=== PATIENT | female | born 1975 | race Caucasian/White ===

== ENCOUNTER 2023-07-11 20:48 | Emergency (ER) | payer OTHER ==
--- NOTE | 2023-07-11 20:58 | ED ---
Lower Extremity Injury HPI - General Source: patient, RN notes reviewed <Aurelia Wray - Last Filed: 07/11/23 20:57> <Sabas Landrum - Last Filed: 07/11/23 23:02> - General Stated Complaint: BROKEN ANKLE Time Seen by Provider: 07/11/23 20:57 - History of Present Illness Initial Comments: Patient is a 48-year-old female presented ER with chief complaint of left ankle injury. Patient states she went to step off a bunk bed and twisted her ankle. She states she heard a crack. (Aurelia Wray) Female presents to the ED with a chief complaint of left ankle injury. Patient states that she went to step off of a bunk bed and accidentally fell onto a piece of wood on the floor causing her to invert her ankle and noted that she heard a crack when this happened. No other injuries at this time. No other complaints. (Sabas Landrum) - Related Data Previous Rx's Medication Instructions Recorded HYDROcodone/APAP 10-325MG [[place] 1 tab PO Q6HR PRN 3 Days #12 tab 07/11/23 10-325] Allergies Allergy/AdvReac Type Severity Reaction Status Date / Time bee venom protein (honey bee) Allergy Anaphylaxis Verified 07/11/23 22:57 NSAIDS (Non-Steroidal AdvReac brain Verified 07/11/23 22:57 Anti-Inflamma aneurysm Review of Systems ROS Other: All systems not noted in ROS Statement are negative. <Aurelia Wray - Last Filed: 07/11/23 20:57> ROS Other: All systems not noted in ROS Statement are negative. <Sabas Landrum - Last Filed: 07/11/23 23:02> ROS Statement: Those systems with pertinent positive or pertinent negative responses have been documented in the HPI. General Exam <Aurelia Wray - Last Filed: 07/11/23 20:57> General appearance: alert, in no apparent distress Eye exam: Present: normal appearance Neck exam: Present: normal inspection Respiratory exam: Present: normal lung sounds bilaterally Cardiovascular Exam: Present: regular rate, normal rhythm GI/Abdominal exam: Present: soft Extremities exam: Present: other (Tenderness to palpation at the left lateral malleolus. DP/PT pulses intact. Strength and sensation intact.) Neurological exam: Present: alert, oriented X3 Skin exam: Present: warm, dry <Sabas Landrum - Last Filed: 07/11/23 23:02> - General Exam Comments Initial Comments: Visual Physical Exam Vital signs reviewed General: Well-appearing, nontoxic, no acute distress. Head: Normocephalic, atraumatic Eyes: PERRLA, EOMI ENT: Airway patent Chest: Nonlabored breathing Skin: No visual rash, normal skin tone Neuro: Alert and oriented 3 Musculoskeletal: No gross abnormalities (Aurelia Wray) Course Vital Signs 07/11/23 20:56 Temperature 98.7 F Pulse Rate 96 Respiratory 18 Rate Blood Pressure 125/68 O2 Sat by Pulse 96 Oximetry Procedures - Orthopedic Splinting/Casting Injury #1 Side: left Lower Extremity Immobilizer: posterior splint, stirrup splint <Sabas Landrum - Last Filed: 07/11/23 23:02> - Orthopedic Splinting/Casting Injury #1 Additional Comments: Good strength and sensation status post splint placement with good capillary refill. (Sabas Landrum) Medical Decision Making <Aurelia Wray - Last Filed: 07/11/23 20:57> <Sabas Landrum - Last Filed: 07/11/23 23:02> - Medical Decision Making I performed the quick note portion of the exam. Electronically signed by Aurelia Wray PA-C (Aurelia Wray) Was pt. sent in by a medical professional or institution (RUSLAN Cox, REGULATORY AFFAIRS DIRECTOR, urgent care, hospital, or prison...) When possible be specific @ -No Did you speak to anyone other than the patient for history (EMS, parent, family, police, friend...)? What history was obtained from this source @ -No Did you review nursing and triage notes (agree or disagree)? Why? @ -I reviewed and agree with nursing and triage notes Were old charts reviewed (outside hosp., previous admission, EMS record, old EKG, old radiological studies, urgent care reports/EKG's, prison records)? Report findings @ -No old charts were reviewed Differential Diagnosis (chest pain, altered mental status, abdominal pain women, abdominal pain men, vaginal bleeding, weakness, fever, dyspnea, syncope, headache, dizziness, GI bleed, back pain, seizure, CVA, palpatations, mental health, musculoskeletal)? @ -Differential Musculoskeletal Muscular strain, contusion, ligament sprain, fracture, arthritis, septic arthritis, bursitis, cellulitis, muscle spasm, nerve compression, DVT, arterial occlusion, herpes zoster, electrolyte abnormality, tumor.... This is not meant to be in all inclusive list EKG interpreted by me (3pts min.). @ -As above X-rays interpreted by me (1pt min.). @ -X-ray interpreted me showing possible left distal fibula fracture. CT interpreted by me (1pt min.). @ -None done U/S interpreted by me (1pt. min.). @ -None done What testing was considered but not performed or refused? (CT, X-rays, U/S, labs)? Why? @ -None What meds were considered but not given or refused? Why? @ -None Did you discuss the management of the patient with other professionals (professionals i.e. , PA, REGULATORY AFFAIRS DIRECTOR, lab, RT, psych nurse, transition social worker, enhanced environmental operator, teacher, geographic area intelligence officer, case preparer and liner)? Give summary @ -No Was smoking cessation discussed for >3mins.? @ -No Was critical care preformed (if so, how long)? @ -No Were there social determinants of health that impacted care today? How? (Homelessness, low income, unemployed, alcoholism, drug addiction, transportation, low edu. Level, literacy, decrease access to med. care, care home, rehab)? @ -No Was there de-escalation of care discussed even if they declined (Discuss DNR or withdrawal of care, Hospice)? DNR status @ -No What co-morbidities impacted this encounter? (DM, HTN, Smoking, COPD, CAD, Cancer, CVA, ARF, Chemo, Hep., AIDS, mental health diagnosis, sleep apnea, morbid obesity)? @ -None Was patient admitted / discharged? Hospital course, mention meds given and route, prescriptions, significant lab abnormalities, going to OR and other pertinent info. @ -Discharge 48-year-old female presenting to the ED with a chief complaint of left ankle pain. Imaging does reveal possible left distal fibula fracture. Patient placed in splint. Provided crutches advised nonweightbearing and follow-up with orthopedics. Provided referral. Discharged home in stable condition. Discussed return precautions with patient who verbalized agreement. Undiagnosed new problem with uncertain prognosis? @ -No Drug Therapy requiring intensive monitoring for toxicity (Heparin, Nitro, Insulin, Cardizem)? @ -No Were any procedures done? @ -No Diagnosis/symptom? @ -Distal left fibula fracture Acute, or Chronic, or Acute on Chronic? @ -Acute Uncomplicated (without systemic symptoms) or Complicated (systemic symptoms)? @ -Uncomplicated Side effects of treatment? @ -No Exacerbation, Progression, or Severe Exacerbation? @ -No Poses a threat to life or bodily function? How? (Chest pain, [place], [place], pneumonia, PE, COPD, DKA, ARF, appy, cholecystitis, CVA, Diverticulitis, Homicidal, Suicidal, threat to staff... and all critical care pts) @ -No (Sabas Landrum) Disposition <Aurelia Wray - Last Filed: 07/11/23 20:57> Is patient prescribed a controlled substance at d/c from ED?: Yes If prescribed controlled substance>3 days was MAPS reviewed?: Prescribed <3 Days If Rx opioid, was Start Talking consent form obtained?: Yes Time of Disposition: 22:15 <Sabas Landrum - Last Filed: 07/11/23 23:02> Clinical Impression: Fracture of distal fibula Disposition: HOME SELF-CARE Condition: Good Instructions (If sedation given, give patient instructions): Ankle Fracture (ED) Additional Instructions: Please return to the Emergency Department if symptoms worsen or any other concerns. Please follow-up with orthopedics. Prescriptions: HYDROcodone/APAP 10-325MG [[place] 10-325] 1 tab PO Q6HR PRN 3 Days #12 tab PRN Reason: Pain Referrals: None,Stated [Primary Care Provider] - 1-2 days Rickie Harris MD [STAFF PHYSICIAN] - 1-2 days
[2023-07-11 21:12] VITALS: RESP 18; TEMP 98.7
--- NOTE | 2023-07-11 22:02 | XR ---
EXAMINATION TYPE: XR ankle limited LT DATE OF EXAM: 07/11/2023 9:55 PM CLINICAL INDICATION:Female, 48 years old with history of rolled ankle; [facility] COMPARISON: None TECHNIQUE: XR ankle limited LT; ankle is imaged in frontal, lateral and oblique projections. FINDINGS/IMPRESSION: Suspected acute fracture of the distal fibula. There is associated soft tissue swelling.
[2023-07-11] MEDS: MORPHINE SULFATE 4 MG/ML SYRINGE IM STA (22:20)
[2023-07-11 23:58] VITALS: BP 100/62; PULSE 66
== END 2023-07-12 00:21 | disposition home or self-care (01) ==
LOC: EC 20:48
DX: S82.402A Unspecified fracture of shaft of left fibula, initial encounter for closed fracture (principal); Z91.030 Bee allergy status; Z88.6 Allergy status to analgesic agent; X50.0XXA Overexertion from strenuous movement or load, initial encounter
CPT/HCPCS: 73600; 99283; 96372; 29515; J2270

== ENCOUNTER 2024-04-16 08:20 | Day surgery (SDC) | payer BC, MEDICARE ==
[2024-04-16] MEDS: IV FLUID CONTINUATION 1,000 ML IV ONE (09:08)
[2024-04-16 09:09] LABS: Glucose,Whole Blood 96 mg/dL (70-110)
[2024-04-16 09:10] VITALS: TEMP 97.2
[2024-04-16] MEDS: LACTATED RINGERS 1,000 ML IV SCH (09:11)
[2024-04-16] MEDS ORDERED: LIDOCAINE 1% INJ 10MG/ML (20 ML MDV) ONE (10:03)
[2024-04-16] MEDS ORDERED: PROPOFOL 10 MG/ML 20 ML VIAL IV ONE (10:03)
--- NOTE | 2024-04-16 10:38 | P.PCN ---
Date of Procedure: 04/16/24 Procedure(s) Performed: BRIEF HISTORY: Patient is a 48-year-old pleasant white female scheduled for an elective colonoscopy as a part of screening for colon cancer. PROCEDURE PERFORMED: Colonoscopy snare polypectomy and Endo Clip placement. PREOPERATIVE DIAGNOSIS: Screening for colon cancer. IV sedation per Anesthesia. PROCEDURE: After informed consent was obtained, the patient, was brought into the endoscopy unit. IV sedation was administered by Anesthesia under continuous monitoring. Digital rectal examination was normal. Initially the Olympus CF-160 flexible video colonoscope was then inserted in the rectum, gradually advanced into the cecum without any difficulty. Careful examination was performed as the scope was gradually being withdrawn. Ileocecal valve and the appendiceal orifice were visualized and appeared normal. Prep was excellent. The base of the cecum and appendiceal orifice there was a 3.5 cm broad-based polyp identified that was removed by piecemeal snare polypectomy and approximately 90% of the polyp was removed. Following the polypectomy endoclip was placed. Rest of the ascending colon, transverse colon, descending colon, sigmoid colon, and rectum appeared normal. Retroflexion was performed in the rectum and no lesions were seen. Sigmoid diverticulosis seen. The patient tolerated the procedure well. IMPRESSION: 3.5 cm broad-based cecal polyp in the base of the cecum by the appendiceal orifice s/p piecemeal snare polypectomy followed by Endo Clip placement in approximately 90% the polyp was removed Scattered sigmoid diverticulosis RECOMMENDATIONS: Findings of this examination were discussed with the patient as well as her family. She was advised to follow-up with the biopsy results. She will be seen in the office in 2 weeks. Based on the biopsy results we will plan on repeat colonoscopy in 1 to 2 months
[2024-04-16 10:44] VITALS: RESP 16
[2024-04-16 10:55] VITALS: BP 102/71; PULSE 71
== END 2024-04-16 11:33 | disposition home or self-care (01) ==
LOC: ORWHC2ENDO 08:20
PROVIDERS: ATTEND Internal Medicine Gastroenterology
DX: Z12.11 Encounter for screening for malignant neoplasm of colon (principal); K57.30 Diverticulosis of large intestine without perforation or abscess without bleeding; D12.0 Benign neoplasm of cecum; E11.9 Type 2 diabetes mellitus without complications; E78.5 Hyperlipidemia, unspecified; E03.9 Hypothyroidism, unspecified; F41.9 Anxiety disorder, unspecified; G43.909 Migraine, unspecified, not intractable, without status migrainosus; G40.909 Epilepsy, unspecified, not intractable, without status epilepticus; Z79.84 Long term (current) use of oral hypoglycemic drugs; Z79.890 Hormone replacement therapy; Z79.899 Other long term (current) drug therapy; Z86.73 Personal history of transient ischemic attack (TIA), and cerebral infarction without residual deficits; Z90.49 Acquired absence of other specified parts of digestive tract; Z98.890 Other specified postprocedural states; Z90.710 Acquired absence of both cervix and uterus
CPT/HCPCS: 88305; 45385; J2003; J2704

== ENCOUNTER → 2024-09-14 | Day surgery (SDC) | payer MEDICARE ==
[~2024-09-14] MED LIST: PROPOFOL 10 MG/ML 20 ML VIAL IV ONE
[2024-09-14 08:33] VITALS: TEMP 97.4
[2024-09-14] MEDS: LACTATED RINGERS 1,000 ML IV SCH (08:40)
[2024-09-14] MEDS: IV FLUID CONTINUATION 1,000 ML IV ONE (08:41)
--- NOTE | 2024-09-14 09:32 | P.PCN ---
Date of Procedure: 09/14/24 Procedure(s) Performed: BRIEF HISTORY: Patient is a 49-year-old pleasant white female scheduled for an elective colonoscopy as a part of follow-up of large cecal polyp that was noted on routine screening colonoscopy in April 2024. She was noted to have a 3.5 cm polyp in the cecal polyp by the appendiceal orifice which was removed by snare polypectomy and biopsy tubular adenoma. She is scheduled for repeat colonoscopy to ensure complete polypectomy PROCEDURE PERFORMED: Colonoscopy with snare polypectomy and argon plasma coagulation. PREOPERATIVE DIAGNOSIS: Follow-up large cecal polyp. IV sedation per Anesthesia. PROCEDURE: After informed consent was obtained, the patient, was brought into the endoscopy unit. IV sedation was administered by Anesthesia under continuous monitoring. Digital rectal examination was normal. Initially the Olympus CF-160 flexible video colonoscope was then inserted in the rectum, gradually advanced into the cecum without any difficulty. Careful examination was performed as the scope was gradually being withdrawn. Ileocecal valve and the appendiceal orifice were visualized and appeared normal. Prep was excellent. Mucosa of the cecum had a 2 cm flat residual polyp identified by appendiceal orifice. Snare polypectomy was performed. Following this as a plasma coagulation was performed and the remainder of the polyp was completely obliterated. The rest of the ascending colon, transverse colon, descending colon, sigmoid colon, and rectum appeared normal. Scattered left-sided diverticulosis retroflexion was performed in the rectum and no lesions were seen. The patient tolerated the procedure well. IMPRESSION: 2 cm flat residual polyp in the base of the cecum by the appendiceal orifice status post snare polypectomy followed by argon plasma coagulation and complete polypectomy accomplished Scattered left-sided diverticulosis RECOMMENDATIONS: Findings of this examination were discussed with the patient as well as his family. She was advised to follow-up with the biopsy results. Recommended repeat colonoscopy 6 months..
[2024-09-14 09:43] LABS: Glucose,Whole Blood 100 mg/dL (70-110)
[2024-09-14 09:49] VITALS: BP 122/63; PULSE 58; RESP 14
== END ==
LOC: ORWHC2ENDO 08:16
PROVIDERS: ATTEND Internal Medicine Gastroenterology
DX: Z09 Encounter for follow-up examination after completed treatment for conditions other than malignant neoplasm (principal); Z86.0101 Personal history of adenomatous and serrated colon polyps; D12.0 Benign neoplasm of cecum; K57.30 Diverticulosis of large intestine without perforation or abscess without bleeding; E11.9 Type 2 diabetes mellitus without complications; E03.9 Hypothyroidism, unspecified; G81.90 Hemiplegia, unspecified affecting unspecified side; R56.9 Unspecified convulsions; G43.909 Migraine, unspecified, not intractable, without status migrainosus; F41.9 Anxiety disorder, unspecified; F43.10 Post-traumatic stress disorder, unspecified; Z79.84 Long term (current) use of oral hypoglycemic drugs; Z79.52 Long term (current) use of systemic steroids; Z79.811 Long term (current) use of aromatase inhibitors; Z79.899 Other long term (current) drug therapy; Z86.79 Personal history of other diseases of the circulatory system; Z88.6 Allergy status to analgesic agent
CPT/HCPCS: 88305; 45385; 45388; J2704